=== PATIENT | born 1935 | race Caucasian/White ===

== ENCOUNTER 2019-12-03 09:09 | Outpatient (RCR) | payer SELFPAY ==
[2019-12-03 09:15] LABS: Add Urine Microscopic? NO
[2019-12-03 09:31] LABS: Urine Appearance Clear (CLEAR); Urine Color Yellow (Yellow)
[2019-12-03 09:32] LABS: Bilirubin Urine Neg (NEGATIVE); Blood Urine Neg (Negative); Glucose Urine UA Norm (Normal); Ketones Urine Negative (Negative); Leukocyte Esterase Urine Negative (Negative); Nitrate Urine Negative (Negative); Protein Urine Neg (Negative); Specific Gravity, Urine 1.015 (1.005-1.030); Urobilinogen Urine Norm (Negative)
== END 2019-12-24 23:59 | disposition home or self-care (01) ==
LOC: LAB 09:09
PROVIDERS: Visit Provider Dermatology
DX: Z01.89 Encounter for other specified special examinations (principal)
CPT/HCPCS: 81003; 87086